=== PATIENT | male | born 1950 | race Caucasian/White ===

== ENCOUNTER 2018-06-04 14:32 | Outpatient (CLI) | payer MEDICARE, OTHER, SELFPAY ==
[2018-06-04] VITALS (10 sets, daily range): BP systolic 103–133; BP diastolic 67–81; PULSE 67–82; RESP 16–20; TEMP 36.2; O2SAT 92–96
--- NOTE | 2018-06-04 14:35 | DI.RAD.S_ITS ---
PROCEDURE: PAIN L/S FACET INJ/BLK 1ST BERTO COMPARISON: None. INDICATIONS: Lumbosacral spondylosis FINDINGS: Successful right L4-5 and right L5-S1 needle tip localization for subsequent epidural steroid injection. IMPRESSION: Needle tip localization at this site margins on the right for epidural steroid injection, transforaminal. Dictated by: Eloy Mckeon M.D. on 06/04/2018 at 16:36 Approved by: Eloy Mckeon M.D. on 06/04/2018 at 16:37
[2018-06-04] MEDS: MIDAZOLAM 5 MG/5 ML VIAL IV (15:02)
[2018-06-04] MEDS: BETAMETHASONE 30 MG/5 ML MDV 12 MG INJ (15:09)
[2018-06-04] MEDS: LIDOCAINE 1% 20 ML INJ 10 ML INJ (15:09)
[2018-06-04] MEDS: IOPAMIDOL 15 ML VIAL 3 ML INJ (15:09)
[2018-06-04] MEDS: BUPIVACAINE 0.5% (PF) VIAL 2 ML INJ (15:09)
--- NOTE | 2018-06-04 15:16 | PC.NURSE ---
pt being transported to post op area in stable condition
--- NOTE | 2018-06-04 15:20 | P.PCN_ITS ---
Procedures Date/Time Date of procedure: 06/04/18 Time of procedure: 15:19 General Procedure description: PREOP DIAGNOSIS 1. FACET ARTHROPATHY 2. AXIAL LBP 3. MULTILEVEL DDD POST OP DIAGNOSIS 1. FACET ARTHROPATHY 2. AXIAL LBP 3. MULTILEVEL DDD PROCEDURES 1. FLUORSCOPICALLY GUIDED CONTRAST CONTROLLED FACET JOINT INJECTIONS BILATERAL L4/5, L5/S1 PHYSICIAN: Segun Doyle, DO INDICATIONS Mg is referred for treatment of Axial LBP FINDINGS Multilevel Facet Arthropathy with Clinically significant axial LBP DESCRIPTION OF PROCEDURE Fluoroscopically guided, contrast-controlled bilateral L4/5, L5/S1 facet joint injections. Following denial of allergy and review of potential side effects and complications, including, but not necessarily limited to, infection, allergic reaction, local tissue breakdown, stroke, temporary or permanent nerve injury, paralysis, and possible , the patient indicated that the patient understood and agreed to proceed. An informed consent document was signed by the patient, witnessed by a nurse, and placed in the patient's chart. Additionally, other treatment options including medications, modalities, and physical therapy were reviewed with the patient. After review of previous anaesthesic history and IV conscious sedation the patient was deemed safe to proceed with todays procedure with IV conscious sedation as ASA class II designation. Safety time-out was performed to confirm patient ID, procedure to be performed and site of procedure. IV sedation was accomplished with a combination of 4mg was administered by the RN after DO order , titrated to patient comfort during the course of the procedure while the patient remained responsive to all verbal commands In the prone position, following sterile prep and drape of the lumbar region, the posterior aspect of the L4/5, L5/S1 facet joints were identified fluoroscopically. The skin was anesthetized via a 25-gauge 1.5-inch needle with 1% lidocaine solution into the corresponding facet joints. At this point, a 22-gauge 3.5-inch spinal needle was atraumatically introduced and advanced under fluoroscopic guidance into the corresponding facet joints. Following negative aspiration, injections of approximately 0.2-cc of Isovue 200 confirmed interarticular placement without vascular uptake. The identical procedure was then performed at the L4/5, L5/S1 facet joints on the left. Radiological data, including multiple fluoroscopic views of the lumbosacral spine, reveal a spinal needle at the L4/5, L5/S1 facet joints bilaterally. Subsequent views show flow of contrast material both superiorly and inferiorly within the joint space without vascular or intrathecal uptake. At this point, a total of 0.5 cc including a mixture of 0.25cc Marcaine and 0.25cc betamethasone was injected without complication into each of the corresponding facet joints. The patient tolerated the procedure well without signs or symptoms of complications prior to transfer to the recovery area continued monitoring without incident. The patient was then transferred to the recovery area where they were observed for an appropriate period of time after the injection. The patient reported a VAS score of 7 prior to the procedure and a post- procedure VAS of 0. Total Fluoroscopy Time: 20.3 seconds Total Conscious Sedation Time: 24min POST OP INSTRUCTIONS The patient was provided a Pain Log to continue to record their response to the target-specific procedure prior to follow-up visit with their referring physician. Additionally, specific post-injection care instructions and a contact number to our office were provided if concerns arise regarding possible complications associated with the procedure are suspected. Segun Doyle, Complications: none
--- NOTE | 2018-06-04 15:26 | PC.NURSE ---
pt arrived via wheelchair from procedure room, pt awake, able to move to chair from W/C. pt able to drink coffee and eat cookies. pt stable.
== END 2018-06-04 15:40 | disposition home or self-care (01) ==
PROVIDERS: Visit Provider Physical Medicine & Rehabilitation
DX: M47.817 Spondylosis without myelopathy or radiculopathy, lumbosacral region (principal); M47.816 Spondylosis without myelopathy or radiculopathy, lumbar region; M51.36 Other intervertebral disc degeneration, lumbar region; M51.37 Other intervertebral disc degeneration, lumbosacral region; M54.5 Low back pain
CPT/HCPCS: 64493; 99152; J0702; J2250

== ENCOUNTER → 2018-06-27 08:25 | Outpatient (CLI) | payer MEDICARE, OTHER, SELFPAY ==
--- NOTE | 2018-06-27 08:28 | DI.MRI.S_ITS ---
PROCEDURE: MR LUMBAR SPINE WO CON INDICATIONS: low back pain TECHNIQUE: Noncontrast sagittal T1 spin echo and T2 fast echo, sagittal STIR, axial T1 and T2 fast spin echo through the lumbar spine. In cases with scoliosis, additional coronal T2 fast spin echo may be performed. COMPARISON: [facility], MR, MR LUMBAR SPINE WO CON, 03/05/2017, 15:47. FINDINGS: Image quality: Excellent. Alignment and Curvature: There is trace retrolithesis of T11 on T12, L1 on L2, L2 on L3, L3 on L4, Grade I L5 on S1, measuring 6 mm. Bone Marrow: Marrow is of normal overall signal. There is moderate reactive endplate change at L5-S1, mild at L2-3 minimal L1-L2, L3-L4, L4-L5. No acute vertebral body compression fractures. Spinal Cord: Conus medullaris terminates at the L1 level. Visualized cord demonstrates normal signal and size. Paraspinous Soft Tissues: No paravertebral masses. Discs: Severe desiccation is present throughout the lumbar spine. L1-L2: Mild disc bulge without spinal stenosis. There is moderate bilateral foraminal narrowing with facet and ligamentum flavum hypertrophy, slightly progressive. Trace epidural lipomatosis is present. L2-L3: Mild disc bulge without spinal stenosis. Moderate bilateral foraminal narrowing with facet and ligamentum flavum hypertrophy. No interval change. L3-L4: Mild disc bulge with trace canal narrowing. Moderate bilateral foraminal narrowing, left greater than right. Facet and ligamentum flavum hypertrophy are present. No interval change. L4-L5: Mild disc bulge with moderate spinal stenosis. Moderate bilateral foraminal narrowing with facet and ligamentum flavum hypertrophy. No interval change. L5-S1: Mild disc bulge with right foraminal component. In addition, there is a small posterior central protrusion with apparent superimposed small extruded fragment. Overall appearance demonstrates interval worsening compared to prior exam. There is mild compromise of the right lateral recess. Moderate to severe right and mild left foraminal narrowing with facet and ligamentum flavum hypertrophy. Slight interval progression is noted on the right with brace appearance of nerve root effacement. IMPRESSION: 1. Multilevel degenerative changes with interval progression of disc bulge and suspected small superimposed extruded fragment at L5-S1. 2. Spinal stenosis is most prominent at L4-5 secondary to disc bulge with contributing effect of facet/ligamentum flavum arthropathy. Dictated by: Cleo Hsieh, M.D. on 06/27/2018 at 11:18 Approved by: Cleo Hsieh M.D. on 06/27/2018 at 11:53
--- NOTE | 2018-06-27 08:28 | DI.MRI.S_ITS ---
PROCEDURE: MR CERVICAL SPINE WO CON INDICATIONS: neck pain TECHNIQUE: Noncontrast sagittal T1 spin echo and T2 fast spin echo, sagittal STIR, foraminal oblique sagittal T2 fast spin echo, and axial gradient echo or T2 fast spin echo through the cervical spine. COMPARISON: None. FINDINGS: Image quality: Excellent. Alignment and Curvature: There is straightening of normal cervical curvature. There is trace anterolisthesis of C3 on C4-C7 on T1, trace retrolisthesis of C5 on C6, C6 on C7. Bone Marrow: Marrow demonstrates normal overall signal. Mild reactive endplate changes at C5-6, C6-7. Spinal Cord: Visualized spinal cord has normal size and signal. No cerebellar tonsillar herniation. Paraspinous Soft Tissues: No paravertebral masses. Prevertebral soft tissues are normal in thickness. There is a focal area of T2 hyperintensity left posterior to the oropharynx measuring approximately 7 mm. C2-C3: Mild disc bulge without spinal stenosis. There is severe left and minimal right foraminal narrowing. Uncovertebral hypertrophy is present. C3-C4: Mild disc bulge with severe spinal stenosis. There is severe bilateral foraminal narrowing with uncovertebral hypertrophy. C4-C5: Mild disc bulge with mild to moderate spinal stenosis. There is moderate to severe left and moderate right foraminal narrowing with uncovertebral hypertrophy. C5-C6: Mild disc bulge with moderate to severe spinal stenosis. Severe bilateral foraminal narrowing with uncovertebral hypertrophy. C6-C7: Mild disc bulge with moderate to severe spinal stenosis. Severe bilateral foraminal narrowing with uncovertebral hypertrophy. C7-T1: Mild disc bulge with moderate spinal stenosis. Moderate bilateral foraminal narrowing with uncovertebral hypertrophy. IMPRESSION: 1. Prominent multilevel degenerative changes. 2. Multilevel spinal stenosis most severe at C5-6 and C6-7 secondary to disc bulge with contributing effect of retrolisthesis. 3. Multilevel foraminal narrowing severe at C5-6 and C6-7 secondary to uncovertebral arthropathy. Dictated by: Cleo Hsieh M.D. on 06/27/2018 at 10:58 Approved by: Cleo Hsieh M.D. on 06/27/2018 at 11:14
== END ==
PROVIDERS: PCP Family Medicine; Visit Provider Physical Medicine & Rehabilitation
DX: M50.21 Other cervical disc displacement, high cervical region (principal); M48.02 Spinal stenosis, cervical region; M99.83 Other biomechanical lesions of lumbar region; M51.27 Other intervertebral disc displacement, lumbosacral region; M51.26 Other intervertebral disc displacement, lumbar region; M48.061 Spinal stenosis, lumbar region without neurogenic claudication; M48.07 Spinal stenosis, lumbosacral region
CPT/HCPCS: 72141; 72148

== ENCOUNTER 2018-07-02 08:04 | Outpatient (CLI) | payer MEDICARE, OTHER, SELFPAY ==
[2018-07-02] VITALS (9 sets, daily range): BP systolic 93–131; BP diastolic 54–82; PULSE 71–85; RESP 16–18; TEMP 36.1; O2SAT 92–98
--- NOTE | 2018-07-02 08:05 | DI.RAD.S_ITS ---
PROCEDURE: PAIN L/S TRANSFORAMINAL INJECT INDICATIONS: SPINAL STENOSIS FINDINGS: Fluoroscopic spot filming was performed to verify placement of spinal needles at the L5-S1 level(s), as labeled on the films. Appropriate location(s) of the needle tip(s) was confirmed by injection of iodinated contrast. IMPRESSION: Fluoroscopy for pain management. Dictated by: Janell Fatima M.D. on 07/02/2018 at 13:45 Approved by: Janell Fatima M.D. on 07/02/2018 at 13:45
[2018-07-02] MEDS: MIDAZOLAM 5 MG/5 ML VIAL IV (09:10)
[2018-07-02] MEDS: BUPIVACAINE 0.25% (PF) VIAL 2 ML INJ (09:16)
[2018-07-02] MEDS: DEXAMETHASONE 10 MG/ML VIAL 20 MG INJ (09:16)
[2018-07-02] MEDS: IOPAMIDOL 15 ML VIAL 3 ML INJ (09:16)
[2018-07-02] MEDS: methylPREDNISolone acetate 80 MG/ML VIAL INJ (09:16)
--- NOTE | 2018-07-02 09:19 | PC.NURSE ---
ASSISTING PT OFF TABLE THAN TRANSPORTING TO POST PROC AREA IN STABLE CONDITION
--- NOTE | 2018-07-02 09:24 | P.PCN_ITS ---
Procedures Date/Time Date of procedure: 07/02/18 Time of procedure: 09:23 General Procedure description: PREOP DIAGNOSIS 1. FORMAINAL STENOSIS WITH LE SYMPTOMS POST OP DIAGNOSIS 1. FORMAINAL STENOSIS WITH LE SYMPTOMS PROCEDURES 1. FLUOROSCOPICALLY GUIDED CONTRAST CONTROLLED TRANSFORAMINAL EPIDURAL STEROID INJECTION - Left L5/S1 PHYSICIAN: Segun Doyle DO INDICATIONS: Mg is referred by Dr. Abad for treatment of Foraminal Stenosis with Left LE Symptoms FINDINGS Foraminal Nerve Root Compression secondary to disc disease and facet hypertrophy DESCRIPTION OF PROCEDURE: Following denial of allergy and review of potential side effects and complications, including, but not necessarily limited to, infection, allergic reaction, local tissue breakdown, stroke, temporary or permanent nerve injury, paralysis, and possible , the patient indicated that the patient understood and agreed to proceed. An informed consent document was signed by the patient, witnessed by a nurse, and placed in the patient's chart. Additionally, other treatment options including medications, modalities, and physical therapy were reviewed with the patient. After review of previous anaesthesic history and IV conscious sedation the patient was deemed safe to proceed with todays procedure with IV conscious sedation as ASA class II designation. Safety time-out was performed to confirm patient ID, procedure to be performed and site of procedure. IV sedation was accomplished with a combination of 3mg was administered by the RN after DO order , titrated to patient comfort during the course of the procedure while the patient remained responsive to all verbal commands In the prone position following sterile prep and drape of the lumbar region, the Left L5/S1 posterior neuroforamen was identified fluoroscopically. The skin was anesthetized via a 25-gauge 1.5-inch needle with 1% lidocaine solution. At this point, a 25-gauge 3.5-inch spinal needle was atraumatically introduced and advanced under fluoroscopic guidance through the posterior Left L5/S1 neuroforamen to approximately the anterior aspect of the canal. Depth was confirmed on lateral view. Following negative aspiration, injection of approximately 1.5 cc of Isovue 200 under live fluoroscopy in the AP view confirmed excellent flow along the nerve root, into the epidural space without vascular or intrathecal uptake observed Radiological data, including multiple fluoroscopic views of the lumbosacral spine, reveal a spinal needle at the Left L5/S1 posterior neuroforamen. Subsequent views show flow of contrast material flowing superiorly and inferiorly along the nerve root confirming epidural flow. Subsequently, a test dose of 1.5 cc of 1% lidocaine solution was administered and patient was observed for two minutes for signs or symptoms of complications , including abdominal pain, shortness of breath, bilateral upper or lower extremity weakness, nausea and vomiting, prior to steroid injection. At this point, a total of 3 cc or 20 mg of dexamethasone and 80mg Depo Medrol was injected without incident. The procedure tolerated the procedure well without signs or symptoms of complications prior to transfer to the recovery area continued monitoring without incident. The patient was then transferred to the recovery area where they were observed for an appropriate time after the injection. The patient reported a VAS score of 7 prior to the procedure and a post-procedure VAS of 0. Total Fluoroscopy Time: 20.9 seconds Total Conscious Sedation Time: 24min POST OP INSTRUCTIONS The patient was provided a Pain Log to continue to record their response to the target-specific procedure prior to follow-up visit with their referring physician. Additionally, specific post-injection care instructions and a contact number to our office were provided if concerns arise regarding possible complications associated with the procedure are suspected. Segun Doyle DO Complications: none
--- NOTE | 2018-07-02 09:35 | PC.NURSE ---
0926 received pt from procedure, resumed monitoring, pt a little sleepy but able to communicate and move from w/c to chair.
--- NOTE | 2018-07-03 13:05 | PC.NURSE ---
FOLLOW UP CALL MADE. LEFT MSG WITH CLINIC NUMBER AND HOURS FOR ANY QUESTIONS/CONCERNS.
== END 2018-07-02 10:28 ==
LOC: RAD 08:05
PROVIDERS: PCP Family Medicine; Visit Provider Physical Medicine & Rehabilitation
DX: M48.062 Spinal stenosis, lumbar region with neurogenic claudication (principal); M51.17 Intervertebral disc disorders with radiculopathy, lumbosacral region; M47.27 Other spondylosis with radiculopathy, lumbosacral region
CPT/HCPCS: 64483; 99152; J1040; J1100; J2250

== ENCOUNTER 2018-08-28 08:17 | Outpatient (CLI) | payer MEDICARE, OTHER, SELFPAY ==
[2018-08-28] VITALS (11 sets, daily range): BP systolic 99–131; BP diastolic 60–81; PULSE 57–72; RESP 14–18; TEMP 36.1; O2SAT 90–98
--- NOTE | 2018-08-28 08:18 | DI.RAD.S_ITS ---
PROCEDURE: PAIN L INTERLAMINAR/CAUDAL INJ INDICATIONS: RADICULOPATHY FINDINGS: Fluoroscopic spot filming was performed to verify placement of spinal needles at the L5-S1 level(s), as labeled on the films. Appropriate location(s) of the needle tip(s) was confirmed by injection of iodinated contrast. IMPRESSION: Fluoroscopy for pain management. Dictated by: Janell Fatima M.D. on 08/28/2018 at 15:56 Approved by: Janell Fatima M.D. on 08/28/2018 at 15:56
[2018-08-28] MEDS: MIDAZOLAM 5 MG/5 ML VIAL IV (09:16)
[2018-08-28] MEDS: fentaNYL 100 MCG/2 ML INJ IV (09:17)
[2018-08-28] MEDS: DEXAMETHASONE 10 MG/ML VIAL 20 MG INJ (09:21)
[2018-08-28] MEDS: BUPIVACAINE 0.25% (PF) VIAL 2 ML INJ (09:21)
[2018-08-28] MEDS: IOPAMIDOL 15 ML VIAL 3 ML INJ (09:21)
[2018-08-28] MEDS: methylPREDNISolone acetate 80 MG/ML VIAL INJ (09:22)
--- NOTE | 2018-08-28 09:23 | PC.NURSE ---
ASSISTING PT OFF TABLE AND TRANSPORTING TO POST PROC AREA IN STABLE CONDITION
--- NOTE | 2018-08-28 09:32 | P.PCN_ITS ---
Procedures Date/Time Date of procedure: 08/28/18 Time of procedure: 09:30 General Procedure description: PROVIDER: Segun Doyle DO Operative Note PREOP DIAGNOSIS 1. HNP WITH RADICULAR FEATURES, 2. MULTILEVEL CENTRAL STENOSIS, POST OP DIAGNOSIS 1. HNP WITH RADICULAR FEATURES, 2. MULTILEVEL CENTRAL STENOSIS, PROCEDURES 1. FLUORSCOPICALLY GUIDED CONTRAST CONTROLLED INTERLAMINAR EPIDURAL STEROID INJECTION - L5/S1 PHYSICIAN: Segun Doyle DO INDICATIONS: Mg is referred by Dr. Abad for treatment of Bilateral Foraminal Stenosis L> R LE symptoms. FINDINGS Multilevel Central Spinal Stenosis with Nerve Root Compression DESCRIPTION OF PROCEDURE Fluoroscopically guided, contrast-controlled L5/S1 translaminar epidural steroid injection. Following denial of allergy and review of potential side effects and complications, including, but not necessarily limited to, infection, allergic reaction, local tissue breakdown, temporary as well as permanent nerve injury, paralysis, stroke and possible , the patient indicated that the patient understood and agreed to proceed. An informed consent document was signed by the patient, witnessed by a nurse, and placed in the patient's chart. Additionally, other treatment options including modalities, medications, and physical therapy were reviewed with the patient. After review of previous anaesthesic history and IV conscious sedation the patient was deemed safe to proceed with todays procedure with IV conscious sedation as ASA class II designation. Safety time-out was performed to confirm patient ID, procedure to be performed and site of procedure. IV sedation was accomplished with a combination of 5mg of Versed and 50mcg of Fentanyl administered by the RN after DO order, titrated to patient comfort during the course of the procedure while the patient remained responsive to all verbal commands. In the prone position, following sterile prep and drape of the lumbar region, the L5/S1 translaminar space was identified fluoroscopically. The skin was anesthetized via a 25-gauge, 1.5-inch needle with 1% lidocaine solution. At this point, a 22-gauge short bevel spinal needle was atraumatically introduced and advanced under fluoroscopic guidance into the region of the L5/S1 translaminar space. Depth was confirmed on lateral view. Radiological data, including multiple fluoroscopic views of the lumbar spine, reveal a spinal needle at the L5/S1 translaminar space. Lateral views then show placement of the needle in the epidural space. Subsequent views show contrast material flowing superiorly and inferiorly in the epidural space. No vascular or intrathecal uptake is observed. At this point, using loss of resistance technique with saline and air, the epidural space was entered. This was confirmed following negative aspiration with injection of approximately 1.5 cc of Isovue 200, showing excellent epidural flow without vascular or intrathecal uptake. At this point, 1 cc of 1 % lidocaine solution combined with 3 cc or 20 mg of dexamethasone and 80mg Depo medrol was injected without incident. The patent tolerated the procedure without signs of symptoms of complications prior to transfer to the recovery area for further monitoring. The patient was then transferred to the recovery area where they were observed for an appropriate period of time after the injection. The patient reported a VAS score of 6 prior to the procedure and a post-procedure VAS of 0. Total Fluoroscopy Time: 11.8 seconds Total Conscious Sedation Time: 24min POST OP INSTRUCTIONS The patient was provided a Pain Log to continue to record their response to the target-specific procedure prior to follow-up visit with their referring physician. Additionally, specific post-injection care instructions and a contact number to our office were provided if concerns arise regarding possible complications associated with the procedure are suspected. Segun Doyle, Complications: none
--- NOTE | 2018-08-28 09:41 | PC.NURSE ---
Pt returned from post procedure a little sedated, reportedly needed more oxygen. Resumed monitoring from Altagracia GONZALEZ.
--- NOTE | 2018-08-28 10:18 | PC.NURSE ---
Played with oxygen on and oxygen off 2 liters nc until patient could maintain his oxygen level. He was awake and encouraged to take deep breaths. Also he was eating and drinking without difficulty.
== END 2018-08-28 10:19 ==
LOC: RAD 08:17
PROVIDERS: PCP Family Medicine; Visit Provider Physical Medicine & Rehabilitation
DX: M51.17 Intervertebral disc disorders with radiculopathy, lumbosacral region (principal); M48.07 Spinal stenosis, lumbosacral region; M99.83 Other biomechanical lesions of lumbar region
CPT/HCPCS: 62323; 99152; J1040; J1100; J2250; J3010